=== PATIENT | female | born 1960 | race Two or more races ===

== ENCOUNTER → 2019-06-03 | Outpatient (CLI) | payer OTHER | END | disposition home or self-care (01) | LOC: MAMO-SONO 08:45 → SONOGRAMA 09:11 | DX: M65.811 Other synovitis and tenosynovitis, right shoulder (principal) ==

== ENCOUNTER 2019-07-07 07:54 | Outpatient (CLI) | payer OTHER | END 2019-07-07 08:13 | disposition home or self-care (01) | LOC: MAMO-SONO 07:54 | DX: N60.11 Diffuse cystic mastopathy of right breast (principal); N60.12 Diffuse cystic mastopathy of left breast; Z12.31 Encounter for screening mammogram for malignant neoplasm of breast; Z87.898 Personal history of other specified conditions ==

== ENCOUNTER 2019-07-23 08:31 | Outpatient (CLI) | payer OTHER | END 2019-07-23 08:33 | disposition home or self-care (01) | LOC: MAMO-SONO 08:31 | DX: R92.8 Other abnormal and inconclusive findings on diagnostic imaging of breast (principal) ==

== ENCOUNTER 2019-08-01 07:40 | Outpatient (CLI) | payer OTHER | END 2019-08-01 13:57 | disposition home or self-care (01) | LOC: LAB 07:40 | DX: I96 Gangrene, not elsewhere classified (principal); R74.0 Nonspecific elevation of levels of transaminase and lactic acid dehydrogenase [LDH] ==

== ENCOUNTER 2020-09-09 11:05 | Outpatient (CLI) | payer OTHER | END 2020-09-09 11:15 | disposition home or self-care (01) | LOC: MAMO-SONO 11:05 | PROVIDERS: ATTEND Obstetrics & Gynecology | DX: Z12.31 Encounter for screening mammogram for malignant neoplasm of breast (principal); N60.11 Diffuse cystic mastopathy of right breast; N60.12 Diffuse cystic mastopathy of left breast ==

== ENCOUNTER 2021-09-27 08:49 | Outpatient (CLI) | payer OTHER | END 2021-09-27 09:04 | disposition home or self-care (01) | LOC: MAMO-SONO 08:49 | PROVIDERS: ATTEND Student in an Organized Health Care Education/Training Program | DX: N60.11 Diffuse cystic mastopathy of right breast (principal); N60.12 Diffuse cystic mastopathy of left breast ==

== ENCOUNTER 2021-10-04 14:02 | Outpatient (CLI) | payer OTHER | END 2021-10-04 14:03 | disposition home or self-care (01) | LOC: NUCLEAR 14:02 | PROVIDERS: ATTEND Student in an Organized Health Care Education/Training Program | DX: M81.0 Age-related osteoporosis without current pathological fracture (principal) ==

== ENCOUNTER 2023-03-12 07:57 | Outpatient (CLI) | payer OTHER | END 2023-03-12 08:48 | disposition home or self-care (01) | LOC: TOM 07:57 → MRI 07:57 | PROVIDERS: ATTEND Obstetrics & Gynecology | DX: D25.1 Intramural leiomyoma of uterus (principal); R10.2 Pelvic and perineal pain; R93.89 Abnormal findings on diagnostic imaging of other specified body structures; N84.0 Polyp of corpus uteri; N60.11 Diffuse cystic mastopathy of right breast; N60.12 Diffuse cystic mastopathy of left breast | CPT/HCPCS: 72197 ==

== ENCOUNTER 2023-07-01 09:21 | Outpatient (CLI) | payer OTHER | END 2023-07-01 09:24 | disposition home or self-care (01) | LOC: SONOGRAMA 09:21 | PROVIDERS: ATTEND Pathology Anatomic Pathology & Clinical Pathology | DX: E04.8 Other specified nontoxic goiter (principal) ==

== ENCOUNTER 2025-09-22 09:50 | Outpatient (CLI) | payer OTHER | END 2025-09-22 10:27 | disposition home or self-care (01) | LOC: SONOGRAMA 09:50 | PROVIDERS: ATTEND Obstetrics & Gynecology | DX: N84.0 Polyp of corpus uteri (principal); R93.89 Abnormal findings on diagnostic imaging of other specified body structures ==